=== PATIENT | female | born 1980 | race Caucasian/White ===

== ENCOUNTER 2017-04-05 12:40 | Emergency (ER) | payer MEDICAID ==
[2017-04-05 14:50] VITALS: BP 127/85
== END 2017-04-05 16:27 | disposition home or self-care (01) ==
LOC: ED 12:40
DX: J18.9 Pneumonia, unspecified organism (principal); J98.01 Acute bronchospasm; R03.0 Elevated blood-pressure reading, without diagnosis of hypertension; Z90.89 Acquired absence of other organs
CPT/HCPCS: J7512; J7613; J7644; Q0092